=== PATIENT | male | born 1995 | race Two or more races ===

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

== ENCOUNTER 2021-11-28 06:02 | Emergency (ER) | payer BC ==
[2021-11-28] MEDS ORDERED: Albuterol/Ipratropium 3.0-0.5 MG/3 ML Neb Soln NEB ONE ×3 (07:25→07:27)
[2021-11-28] MEDS ORDERED: Dexamethasone 10 MG/ML SDV IVPUSH ONE (07:27)
[2021-11-28 09:26] LABS: ESTIMATED GFR 127 mL/min (>60)
[2021-11-28 09:49] LABS: CORONAVIRUS COVID-19 NAA NEGATIVE (NEGATIVE)
[2021-11-28 10:02] VITALS: BP 150/82; PULSE 96
== END 2021-11-28 09:55 | disposition home or self-care (01) ==
LOC: JD.ED 06:02
DX: J45.901 Unspecified asthma with (acute) exacerbation (principal); Z91.040 Latex allergy status; Z20.822 Contact with and (suspected) exposure to COVID-19
CPT/HCPCS: 0241U; 36415; 71045; 80053; 85025; 96374; 99285; 99284; J7620-GY

== ENCOUNTER 2022-06-24 07:38 | Emergency (ER) | payer BC ==
[2022-06-24] MEDS ORDERED: Ondansetron 4 MG/2 ML SDV IVPUSH ONE (07:56)
[2022-06-24] MEDS ORDERED: Sodium Chloride 0.9% 1,000 ML IV ONE (07:56)
[2022-06-24 08:02] LABS: BASOPHILS ABSOLUTE AUTO 0.03 K/mm3 (0.01-0.08); BASOPHILS PERCENT AUTO 0.2 % (0.1-1.2); EOSINOPHILS PERCENT AUTO 0 (0.8-7.0); HEMATOCRIT 44.5 % (40.1-51.0); HEMOGLOBIN 14.6 gm/dl (13.7-17.5); IMMATURE GRAN ABSOLUTE AUTO 0.07 K/mm3 (0.00-0.10); IMMATURE GRAN PERCENT AUTO 0.4 % (<=1.0); LYMPHOCYTES ABSOLUTE AUTO 0.91 K/mm3 (1.32-3.57); LYMPHOCYTES PERCENT AUTO 5.4 % (21.8-53.1); MEAN CORPUSCULAR HEMOGLOBIN 25.8 pg (25.7-32.2); MEAN CORPUSCULAR HGB CONC 32.8 g/dl (32.2-35.5); MEAN CORPUSCULAR VOLUME 78.6 fl (79.0-92.2); MEAN PLATELET VOLUME 9.3 fl (9.4-12.3); MONOCYTES ABSOLUTE AUTO 1.58 K/mm3 (0.30-0.82); MONOCYTES PERCENT AUTO 9.4 % (5.3-12.2); NEUTROPHILS ABSOLUTE AUTO 14.22 K/mm3 (1.78-5.38); NEUTROPHILS PERCENT AUTO 84.6 % (34.0-67.9); PLATELET COUNT,PLT 258 K/mm3 (163-337); RED BLOOD CELL COUNT 5.66 M/mm3 (4.63-6.08); WHITE BLOOD CELL COUNT,WBC 16.81 K/mm3 (4.23-9.07)
[2022-06-24] MEDS ORDERED: Albuterol/Ipratropium 3.0-0.5 MG/3 ML Neb Soln NEB ONE ×2 (08:11→09:36)
[2022-06-24] MEDS ORDERED: methylPREDNISolone Sodium Succinate 125 MG/2 ML SDV IVPUSH ONE (08:11)
[2022-06-24] MEDS ORDERED: Sodium Chloride 0.9% 10 ML Syringe FLUSH ONE (08:24)
[2022-06-24] MEDS ORDERED: Iopamidol 755 Mg/ML 100 ML Bottle IVPUSH ONE (08:24)
[2022-06-24 08:29] LABS: A/G RATIO 0.8 (1-2); ALBUMIN 3.2 g/dl (3.4-5.0); ANION GAP 12.7 (5-15); BILIRUBIN TOTAL 1.7 mg/dL (0.2-1.0); BUN/CREATININE RATIO 11.8 (14-18); CALCIUM 8.3 mg/dL (8.5-10.1); CREATININE 1.1 mg/dL (0.7-1.3); EST CRCL DRUG DOSING (CG) 112.68 mL/min; POTASSIUM,K 3.7 mEq/L (3.5-5.1); PROTEIN TOTAL,TP 7.3 g/dl (6.4-8.2)
[2022-06-24] MEDS ORDERED: Sodium Chloride 0.9% 100 ML IV SCH (08:30)
[2022-06-24 08:42] LABS: CORONAVIRUS COVID-19 NAA NEGATIVE (NEGATIVE); INFLUENZA A NAA NEGATIVE (NEGATIVE)
[2022-06-24] MEDS ORDERED: Piperacillin/Tazobactam 4.5 GM in Sodium Chloride 0.9% 100 ML IV ONE (08:42)
[2022-06-24 09:00] LABS: SLIDE REVIEW ABNORMAL SMEAR
[2022-06-24 09:53] LABS: APPEARANCE,URINE CLEAR (Clear); BILIRUBIN,URINE NEGATIVE (Negative); COLOR,URINE YELLOW (Yellow); GLUCOSE,URINE NEGATIVE (Negative); KETONES,URINE NEGATIVE (Negative); LEUKOCYTE ESTERASE,URINE NEGATIVE (Negative); NITRITE,URINE NEGATIVE (Negative); OCCULT BLOOD,URINE NEGATIVE (Negative); PROTEIN,URINE 1+ (Negative)
[2022-06-24 10:02] LABS: LACTIC ACID 0.8 mmol/L (0.4-2.0)
[2022-06-24] MEDS ORDERED: Sodium Chloride 0.9% 1,000 ML IV SCH ×2 (10:15→10:30)
[2022-06-24 10:20] LABS: BACTERIA,URINE MODERATE /hpf (FEW); EPITHELIAL CELLS,URINE NOT SEEN /hpf (0-5); MUCUS,URINE NOT SEEN /hpf (FEW); RBC,URINE NOT SEEN /hpf (0-5); WBC,URINE NOT SEEN /hpf (0-5)
[2022-06-24 13:55] VITALS: BP 107/54; PULSE 100
== END 2022-06-24 13:53 | disposition home or self-care (01) ==
LOC: JD.ED 07:38
DX: J18.1 Lobar pneumonia, unspecified organism (principal); Z91.040 Latex allergy status; Z86.16 Personal history of COVID-19; Z20.822 Contact with and (suspected) exposure to COVID-19
CPT/HCPCS: 0240U; 36415; 71046; 71275; 80053; 81001; 83605; 84484; 85025; 87040; 93005; 94640; 96361; 96365; 96375; 99285; J2405; J2543; J2930; J3490; J7030; Q9967; J7620-GY

== ENCOUNTER 2024-02-06 09:59 | Emergency (ER) | payer BC ==
[2024-02-06] MEDS: Albuterol 6.7 GM Inhaler INH ONE (11:37)
[2024-02-06] MEDS: Oseltamivir 75 MG Cap PO ONE (12:02)
[2024-02-06 12:17] VITALS: BP 141/87; PULSE 104
== END 2024-02-06 12:05 | disposition home or self-care (01) ==
LOC: JD.ED 09:59
DX: J10.1 Influenza due to other identified influenza virus with other respiratory manifestations (principal); Z86.16 Personal history of COVID-19; Z91.048 Other nonmedicinal substance allergy status; Z91.040 Latex allergy status
CPT/HCPCS: 71046; 87428; 94640; 99285; A9270

== ENCOUNTER 2024-02-07 02:02 | Emergency (ER) | payer BC ==
[2024-02-07] MEDS ORDERED: Sodium Chloride 0.9% 10 ML Syringe FLUSH PRN (02:59)
[2024-02-07 03:07] LABS: BASOPHILS PERCENT AUTO 0.7 % (0.0-1.0); EOSINOPHILS PERCENT AUTO 0.3 % (0.0-6.0); HEMATOCRIT 43.3 % (42.0-52.0); IMMATURE GRAN ABSOLUTE AUTO 0.01 K/mm3 (0.00-0.05); IMMATURE GRAN PERCENT AUTO 0.2 % (0.0-0.4); LYMPHOCYTES ABSOLUTE AUTO 0.9 K/mm3 (1.0-4.8); LYMPHOCYTES PERCENT AUTO 15.8 % (24.0-44.0); MEAN CORPUSCULAR HEMOGLOBIN 24.5 pg (28.0-32.0); MEAN CORPUSCULAR HGB CONC 32.3 g/dl (32.0-36.0); MEAN CORPUSCULAR VOLUME 75.7 fl (83.0-99.0); MEAN PLATELET VOLUME 9.2 fl (9.4-12.4); MONOCYTES ABSOLUTE AUTO 0.6 K/mm3 (0.0-0.8); MONOCYTES PERCENT AUTO 10.3 % (0.0-8.0); NEUTROPHILS ABSOLUTE AUTO 4.2 K/mm3 (1.8-7.7); NEUTROPHILS PERCENT AUTO 72.7 % (41.0-71.0); PLATELET COUNT,PLT 226 K/mm3 (150-400); RED BLOOD CELL COUNT 5.72 M/mm3 (4.52-5.90); WHITE BLOOD CELL COUNT,WBC 5.83 K/mm3 (3.9-11.3)
[2024-02-07] MEDS: Albuterol/Ipratropium 3.0-0.5 MG/3 ML Neb Soln NEB SCH (03:09)
[2024-02-07] MEDS: predniSONE 20 MG Tab PO ONE (03:17)
[2024-02-07 03:29] LABS: A/G RATIO 0.8 (1-2); ALANINE AMINOTRANSFERASE,ALT 48 U/L (16-63); ALBUMIN 3.3 g/dl (3.4-5.0); ALKALINE PHOSPHATASE 62 U/L (46-116); ANION GAP 11.9 (5-15); ASPARTATE AMNIOTRANSFERASE,AST 34 U/L (15-37); BILIRUBIN TOTAL 0.3 mg/dL (0.2-1.0); BLOOD UREA NITROGEN,BUN 8 mg/dL (7-18); CALCIUM 8.3 mg/dL (8.5-10.1); CARBON DIOXIDE,CO2 26 mEq/L (21-32); CHLORIDE,CL 101 mEq/L (98-107); CREATININE 0.8 mg/dL (0.7-1.3); ESTIMATED GFR 124 mL/min (>60); GLUCOSE RANDOM 126 mg/dL (70-99); POTASSIUM,K 3.9 mEq/L (3.5-5.1); PROTEIN TOTAL,TP 7.3 g/dl (6.4-8.2); SODIUM,NA 135 mEq/L (136-145)
[2024-02-07 04:04] VITALS: BP 163/83; PULSE 101
== END 2024-02-07 04:22 | disposition home or self-care (01) ==
LOC: JD.ED 02:02
DX: J11.1 Influenza due to unidentified influenza virus with other respiratory manifestations (principal); J45.909 Unspecified asthma, uncomplicated; Z91.040 Latex allergy status; Z91.048 Other nonmedicinal substance allergy status; Z79.51 Long term (current) use of inhaled steroids; Z79.52 Long term (current) use of systemic steroids; Z79.899 Other long term (current) drug therapy
CPT/HCPCS: 36415; 71045; 80053; 83880; 84484; 85025; 93005; 94640; 99285; J7512; J7620-GY